=== PATIENT | female | born 1980 ===

== ENCOUNTER 2020-09-18 08:57 | Emergency (ER) | payer OTHER ==
[2020-09-18 09:04] VITALS: BP 127/92
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
[2020-09-18] MEDS ORDERED: IBUPROFEN 800 MG TAB PO ONE (11:33)
[2020-09-18] MEDS ORDERED: ACETAMINOPHEN 325 MG TAB PO ONE (11:33)
== END 2020-09-18 12:16 | disposition home or self-care (01) ==
LOC: ED 08:57
DX: M23.91 Unspecified internal derangement of right knee (principal); Z79.899 Other long term (current) drug therapy; V49.3XXA Car occupant (driver) (passenger) injured in unspecified nontraffic accident, initial encounter; Y93.89 Activity, other specified; Y92.488 Other paved roadways as the place of occurrence of the external cause; Y99.8 Other external cause status
CPT/HCPCS: 99283